=== PATIENT | male | born 1985 | race Caucasian/White ===

== ENCOUNTER 2017-02-19 20:19 | Emergency (ER) | payer BC ==
[~2017-02-19] VITALS: Ht 170.2 cm; Wt 75.0 kg
[2017-02-19 20:23] VITALS: BP 166/84; PULSE 140; RESP 18; TEMP 98.4; O2SAT 100
[2017-02-19] MEDS ORDERED: SODIUM CHLOR 0.9% 1000 ML INJ 1,000 ML IV ONE (20:24)
[2017-02-19] MEDS ORDERED: PROZ20CA11 PO (20:27)
[2017-02-19] MEDS ORDERED: ATOM25 PO (20:27)
[2017-02-19 20:28] VITALS: BP 155/78; PULSE 135; RESP 18; O2SAT 98; O2SAT 99
[2017-02-19] MEDS ORDERED: NALOXONE HCL 2 MG/2 ML VIAL IV PUSH ONE (20:30)
[2017-02-19] MEDS ORDERED: SODIUM CHLORIDE 0.9% FLUSH 10 ML FLUSH IVF PRN (20:30)
--- NOTE | 2017-02-19 20:36 | PD ---
HPI Chief Complaint: OD/ Ingestion Time Seen by Provider: 20:24 Travel History International Travel<30 days: No Contact w/Intl Traveler<30days: No Traveled to known affect area: No History of Present Illness HPI The patient is a 31-year-old male who presents emergency department via private vehicle, was dropped off the front to the emergency department after an apparent overdose. The patient had poor spontaneous respirations and was cyanotic upon arrival. The patient's GCS was 3, he was unable to provide information initially upon evaluation in the emergency department. [facility] Past Medical History ADHD: Yes Anxiety: Yes Diminished Hearing: No Tetanus Vaccination: Unknown Influenza Vaccination: No Past Surgical History Surgical History: No Previous Surgery Social History Alcohol Use: No Tobacco Use: Yes Substance Use: Yes (FENTANYL) Allergies-Medications (Allergen,Severity, Reaction): Coded Allergies: No Known Allergies (Unverified , 02/19/17) Reported Meds & Prescriptions Reported Meds & Active Scripts Active Reported Strattera (Atomoxetine HCl) 25 Mg Cap 25 Mg PO DAILY Prozac (Fluoxetine HCl) 20 Mg Cap 20 Mg PO DAILY Review of Systems ROS Limitations: Clinical Condition Except as stated in HPI: all other systems reviewed are Neg Psychiatric: Positive: Substance Abuse Physical Exam Narrative GENERAL: 31-year-old male who is breathing approximately 2-3 times per minute, was cyanotic upon arrival. SKIN: Cool and diaphoretic to the touch. HEAD: Atraumatic. Normocephalic. EYES: Pinpoint pupils bilateral. ENT: No nasal bleeding or discharge. Mucous membranes pink and moist. NECK: Trachea midline. No JVD. CARDIOVASCULAR: Tachycardic in the 120s. RESPIRATORY: Respiratory rate was approximately 2-3/m upon arrival. Rhonchi in the bases. Abdomen: No obvious rigidity or distention. MUSCULOSKELETAL: Cyanotic. NEUROLOGICAL: GCS of 3. Does not respond to verbal commands or painful similar. PSYCHIATRIC: Unable to obtain. Data Data Last Documented VS Vital Signs Date Time Temp Pulse Resp B/P (MAP) Pulse Ox O2 Delivery O2 Flow Rate FiO2 02/19/17 20:28 18 99 Nasal Cannula 2.00 02/19/17 20:28 135 155/78 (103) 02/19/17 20:23 98.4 Orders Orders Electrocardiogram (02/19/17 20:24) Complete Blood Count With Diff (02/19/17 20:24) Comprehensive Metabolic Panel (02/19/17 20:24) Prothrombin Time / Inr (Pt) (02/19/17 20:24) Act Partial Throm Time (Ptt) (02/19/17 20:24) Urinalysis - C+S If Indicated (02/19/17 20:24) Iv Access Insert/Monitor (02/19/17 20:24) Ecg Monitoring (02/19/17 20:24) Oximetry (02/19/17 20:24) Naloxone Inj (Narcan Inj) (02/19/17 20:30) Sodium Chloride 0.9% Flush (Ns Flush) (02/19/17 20:30) Sodium Chlor 0.9% 1000 Ml Inj (Ns 1000 M (02/19/17 20:24) Drug Screen, Random Urine (02/19/17 20:24) Alcohol (Ethanol) (02/19/17 20:24) Salicylates (Aspirin) (02/19/17 20:24) Tylenol (Acetaminophen) (02/19/17 20:24) Labs Laboratory Tests Test 02/19/17 20:31 02/19/17 20:59 White Blood Count 18.1 TH/MM3 Red Blood Count 5.11 MIL/MM3 Hemoglobin 14.6 GM/DL Hematocrit 44.7 % Mean Corpuscular Volume 87.4 FL Mean Corpuscular Hemoglobin 28.6 PG Mean Corpuscular Hemoglobin Concent 32.7 % Red Cell Distribution Width 12.8 % Platelet Count 339 TH/MM3 Mean Platelet Volume 9.3 FL Neutrophils (%) (Auto) 34.2 % Lymphocytes (%) (Auto) 52.3 % Monocytes (%) (Auto) 10.1 % Eosinophils (%) (Auto) 2.0 % Basophils (%) (Auto) 1.4 % Neutrophils # (Auto) 6.2 TH/MM3 Lymphocytes # (Auto) 9.5 TH/MM3 Monocytes # (Auto) 1.8 TH/MM3 Eosinophils # (Auto) 0.4 TH/MM3 Basophils # (Auto) 0.2 TH/MM3 CBC Comment AUTO DIFF Differential Total Cells Counted 100 Neutrophils % (Manual) 45 % Band Neutrophils % 1 % Lymphocytes % 37 % Monocytes % 4 % Eosinophils % 2 % Basophils % 2 % Neutrophils # (Manual) 8.5 TH/MM3 Myelocytes 1 % Differential Comment FINAL DIFF MANUAL Atypical Lymphocytes 8 % Platelet Estimate NORMAL Platelet Morphology Comment CLUMPED Ovalocytes 1+ Prothrombin Time 10.9 SEC Prothromb Time International Ratio 1.0 RATIO Activated Partial Thromboplast Time 20.3 SEC Blood Urea Nitrogen 16 MG/DL Creatinine 1.33 MG/DL Random Glucose 188 MG/DL Total Protein 8.4 GM/DL Albumin 4.1 GM/DL Calcium Level 9.3 MG/DL Alkaline Phosphatase 83 U/L Aspartate Amino Transf (AST/SGOT) 25 U/L Alanine Aminotransferase (ALT/SGPT) 47 U/L Total Bilirubin 0.2 MG/DL Sodium Level 137 MEQ/L Potassium Level 3.4 MEQ/L Chloride Level 101 MEQ/L Carbon Dioxide Level 24.5 MEQ/L Anion Gap 12 MEQ/L Estimat Glomerular Filtration Rate 64 ML/MIN Salicylates Level 2.0 MG/DL Acetaminophen Level LESS THAN 2.0 MCG/ML Ethyl Alcohol Level LESS THAN 3 MG/DL Urine Color YELLOW Urine Turbidity CLEAR Urine pH 6.0 Urine Specific [place] 1.027 Urine Protein 30 mg/dL Urine Glucose (UA) NEG mg/dL Urine Ketones NEG mg/dL Urine Occult Blood NEG Urine Nitrite NEG Urine Bilirubin NEG Urine Urobilinogen 2.0 MG/DL Urine Leukocyte Esterase NEG Urine WBC 1 /hpf Urine Hyaline Casts 1 /lpf Urine Mucus FEW /lpf Microscopic Urinalysis Comment CULT NOT INDICATED Urine Opiates Screen POS Urine Barbiturates Screen NEG Urine Amphetamines Screen NEG Urine Benzodiazepines Screen NEG Urine Cocaine Screen NEG Urine Cannabinoids Screen NEG MDM Medical Decision Making Medical Screen Exam Complete: Yes Emergency Medical Condition: Yes Medical Record Reviewed: Yes Interpretation(s) EKG reveals sinus tachycardia with a rate of 142. Incomplete right bundle branch block with QRS of 105 ms with RSR prime in V1. Laboratory Tests Test 02/19/17 20:31 02/19/17 20:59 White Blood Count 18.1 TH/MM3 Red Blood Count 5.11 MIL/MM3 Hemoglobin 14.6 GM/DL Hematocrit 44.7 % Mean Corpuscular Volume 87.4 FL Mean Corpuscular Hemoglobin 28.6 PG Mean Corpuscular Hemoglobin Concent 32.7 % Red Cell Distribution Width 12.8 % Platelet Count 339 TH/MM3 Mean Platelet Volume 9.3 FL Neutrophils (%) (Auto) 34.2 % Lymphocytes (%) (Auto) 52.3 % Monocytes (%) (Auto) 10.1 % Eosinophils (%) (Auto) 2.0 % Basophils (%) (Auto) 1.4 % Neutrophils # (Auto) 6.2 TH/MM3 Lymphocytes # (Auto) 9.5 TH/MM3 Monocytes # (Auto) 1.8 TH/MM3 Eosinophils # (Auto) 0.4 TH/MM3 Basophils # (Auto) 0.2 TH/MM3 CBC Comment AUTO DIFF Differential Total Cells Counted 100 Neutrophils % (Manual) 45 % Band Neutrophils % 1 % Lymphocytes % 37 % Monocytes % 4 % Eosinophils % 2 % Basophils % 2 % Neutrophils # (Manual) 8.5 TH/MM3 Myelocytes 1 % Differential Comment FINAL DIFF MANUAL Atypical Lymphocytes 8 % Platelet Estimate NORMAL Platelet Morphology Comment CLUMPED Ovalocytes 1+ Prothrombin Time 10.9 SEC Prothromb Time International Ratio 1.0 RATIO Activated Partial Thromboplast Time 20.3 SEC Blood Urea Nitrogen 16 MG/DL Creatinine 1.33 MG/DL Random Glucose 188 MG/DL Total Protein 8.4 GM/DL Albumin 4.1 GM/DL Calcium Level 9.3 MG/DL Alkaline Phosphatase 83 U/L Aspartate Amino Transf (AST/SGOT) 25 U/L Alanine Aminotransferase (ALT/SGPT) 47 U/L Total Bilirubin 0.2 MG/DL Sodium Level 137 MEQ/L Potassium Level 3.4 MEQ/L Chloride Level 101 MEQ/L Carbon Dioxide Level 24.5 MEQ/L Anion Gap 12 MEQ/L Estimat Glomerular Filtration Rate 64 ML/MIN Salicylates Level 2.0 MG/DL Acetaminophen Level LESS THAN 2.0 MCG/ML Ethyl Alcohol Level LESS THAN 3 MG/DL Urine Color YELLOW Urine Turbidity CLEAR Urine pH 6.0 Urine Specific [place] 1.027 Urine Protein 30 mg/dL Urine Glucose (UA) NEG mg/dL Urine Ketones NEG mg/dL Urine Occult Blood NEG Urine Nitrite NEG Urine Bilirubin NEG Urine Urobilinogen 2.0 MG/DL Urine Leukocyte Esterase NEG Urine WBC 1 /hpf Urine Hyaline Casts 1 /lpf Urine Mucus FEW /lpf Microscopic Urinalysis Comment CULT NOT INDICATED Urine Opiates Screen POS Urine Barbiturates Screen NEG Urine Amphetamines Screen NEG Urine Benzodiazepines Screen NEG Urine Cocaine Screen NEG Urine Cannabinoids Screen NEG Differential Diagnosis Differential diagnosis includes opiate overdose, polysubstance abuse, aspiration , flash pulmonary edema, STEMI, CVA, ICH. Narrative Course Upon arrival the patient was breathing approximately 2-3 times per minute was cyanotic. He was rushed Bactrim echo 53. The patient was bagged via BVM and placed on O2 via nasal cannula. The patient was administered Narcan 2 mg sublingual with the needle. The patient then had an IV established was placed on cardiac telemetry monitoring and continuous pulse oximeter monitoring. The patient responded within 1-2 minutes, became awake and was able to sit upright. The patient did advise me that use intravenous fentanyl approximately one hour prior to arrival. He denies any other current physical complaints. Labs were drawn and sent. Chest x-ray was ordered to evaluate for possible pulmonary edema. EKG was ordered and interpreted. The patient was administered 1 L of IV fluids. Patient refused chest x-ray. Labs are unremarkable. The patient was monitored to 1 AM, no further signs of hypoxia, will be discharged. He is advised to stop using IV drugs. Diagnosis Primary Impression: Opiate overdose Qualified Codes: T40.601A - Poisoning by unspecified narcotics, accidental ( unintentional), initial encounter Patient Instructions: General Instructions Additional Instructions: Stop using IV drugs. Follow up outpatient with [facility] as needed. Return if symptoms worsen or progress. Disposition: 01 DISCHARGE HOME Condition: Stable Gian Henderson MD Feb 19, 2017 20:36
[2017-02-19 20:52] LABS: AUTOMATED NEUTROPHIL # 6.2 TH/MM3 (1.8-7.7); BASOPHIL # 0.2 TH/MM3 (0-0.2); BASOPHIL % 1.4 % (0.0-2.0); EOSINOPHIL # 0.4 TH/MM3 (0-0.4); HEMATOCRIT 44.7 % (39.0-51.0); LYMPH % 52.3 % (9.0-44.0); LYMPHOCYTE # 9.5 TH/MM3 (1.0-4.8); MEAN CELL VOLUME 87.4 FL (80.0-100.0); MEAN CORPUSCULAR HEMOGLOBIN 28.6 PG (27.0-34.0); MEAN CORPUSCULAR HGB CONC 32.7 % (32.0-36.0); MONO % 10.1 % (0.0-8.0); NEUT % 34.2 % (16.0-70.0); PLATELET COUNT 339 TH/MM3 (150-450); RED BLOOD COUNT 5.11 MIL/MM3 (4.50-5.90); RED CELL DISTRIBUTION WIDTH 12.8 % (11.6-17.2); WHITE BLOOD COUNT 18.1 TH/MM3 (4.0-11.0)
[2017-02-19 20:58] LABS: HEMO FLAGS AUTO DIFF
[2017-02-19 21:10] LABS: ALT (GPT) 47 U/L (12-78)
[2017-02-19 21:11] LABS: APTT (PATIENT) 20.3 SEC (24.3-30.1); PROTHROMBIN TIME - PATIENT 10.9 SEC (9.8-11.6)
[2017-02-19 21:12] LABS: ALKALINE PHOSPHATASE 83 U/L (45-117); TOTAL BILIRUBIN ADULT 0.2 MG/DL (0.2-1.0)
[2017-02-19 21:13] LABS: BLOOD, URINE NEG (NEG); COMMENT (UR) CULT NOT INDICATED; CULTURE IF INDICATED CULT NOT INDICATED; GLUCOSE,URINE NEG (NEG); HYALINE CAST, URINE 1 /lpf (RARE); KETONE, URINE NEG (NEG); MUCUS URINE FEW /lpf (OCC); NITRITE,URINE NEG (NEG); URINE COLOR YELLOW (YELLW/STRAW)
[2017-02-19 21:36] LABS: ANION GAP 12 MEQ/L (5-15); AST (GOT) 25 U/L (15-37); BICARBONATE 24.5 MEQ/L (21.0-32.0); BLOOD UREA NITROGEN 16 MG/DL (7-18); CHLORIDE 101 MEQ/L (98-107); GLOMERULAR FILTRATION RATE 64 ML/MIN (>89); POTASSIUM 3.4 MEQ/L (3.5-5.1); SODIUM (NA) 137 MEQ/L (136-145)
[2017-02-19 21:39] LABS: ATYPICAL LYMPHOCYTES 8 % (0-0); BANDS 1 % (0-6); BASOPHILS 2 % (0-2); EOSINOPHILS 2 % (0-4); MYELOCYTES 1 % (0-0); NEUTROPHIL # MANUAL DIFF 8.5 TH/MM3 (1.8-7.7); POLYS (SEG NEUTROPHILS) 45 % (16-70); WBC DIFF SAMPLE 100
[2017-02-19 21:41] LABS: PLATELET ESTIMATE SMEAR NORMAL (NORMAL); PLATELET MORPHOLOGY CLUMPED (NORMAL)
[2017-02-19 21:42] LABS: OVALOCYTES 1+ (NORMAL); SCAN/DIFF FINAL DIFF MANUAL
[2017-02-19 21:45] LABS: ACETAMINOPHEN LESS THAN 2.0 MCG/ML (10.0-30.0); ALCOHOL LESS THAN 3 MG/DL (0-5)
[2017-02-19 22:28] VITALS: BP 136/84; PULSE 100; RESP 18; O2SAT 96
[2017-02-20 00:37] VITALS: BP 138/68; PULSE 109; PULSE 116; RESP 18; O2SAT 97
--- NOTE | 2017-02-20 05:05 | EKG ---
Date Performed: 02/19/2017 Time Performed: 20:25:42 PTAGE: 31 years EKG: SINUS TACHYCARDIA, POSSIBLE ATRIAL FLUTTER BORDERLINE RIGHT AXIS DEVIATION INCOMPLETE RIGHT BUNDLE BRANCH BLOCK ABNORMAL RHYTHM ECG NO PREVIOUS TRACING DOCTOR: Emir Tavarez Interpretating Date/Time 02/20/2017 05:03:04
== END 2017-02-20 01:12 | disposition home or self-care (01) ==
LOC: NEPE 20:19
DX: T40.601A Poisoning by unspecified narcotics, accidental (unintentional), initial encounter (principal); F90.9 Attention-deficit hyperactivity disorder, unspecified type; F41.9 Anxiety disorder, unspecified; R00.0 Tachycardia, unspecified; I45.10 Unspecified right bundle-branch block; R94.31 Abnormal electrocardiogram [ECG] [EKG]; Z72.0 Tobacco use; Z79.899 Other long term (current) drug therapy
CPT/HCPCS: 80053; 80307; 81001; 85007; 85027; 85610; 85730; 93005; 96360; 96361; 99284; J7030

== ENCOUNTER 2017-09-13 17:35 | Emergency (ER) | payer BC ==
[~2017-09-13] VITALS: Ht 172.7 cm; Wt 80.0 kg
[~2017-09-13 17:35] MED LIST: ATOM25 PO; PROZ20CA11 PO
[2017-09-13 17:40] VITALS: BP 145/89; PULSE 115; RESP 20; TEMP 98.3; O2SAT 98
[2017-09-13] MEDS ORDERED: SODIUM CHLOR 0.9% 1000 ML INJ 1,000 ML IV ONE (18:00)
[2017-09-13] MEDS ORDERED: ONDANSETRON HCL 4 MG/2 ML VIAL IV PUSH ONE (18:00)
--- NOTE | 2017-09-13 18:37 | PD ---
HPI Chief Complaint: OD/ Ingestion Time Seen by Provider: 17:53 Travel History International Travel<30 days: No Contact w/Intl Traveler<30days: No Traveled to known affect area: No History of Present Illness HPI 32-year-old male that presents to the ED for evaluation of overdose. Patient has a history of heroine abuse. Patient has a history of IV drug abuse. Patient denies any attempt to commit suicide. Per patient he was just doing this recreationally. Per patient he is to be clean for some time. He has relapsed. He denies any suicidal homicidal ideation. No depression. No head injury. Patient was found by bystanders and ambulance given Narcan. Patient now back to baseline. Arousable. Speaks in full sentences. Denies any medical issues at this time. No pain. States feeling tired. Symptoms started today after he injected himself. He does remember injecting but does not remember what happened afterwards. He believes that he was Heroin. No allergies. No other complains at this time. PFSH Past Medical History ADHD: Yes Anxiety: Yes Diminished Hearing: No Tetanus Vaccination: > 5 Years Influenza Vaccination: No Past Surgical History Surgical History: No Previous Surgery Social History Alcohol Use: No Tobacco Use: Yes Substance Use: Yes (FENTANYL, HEROIN) Allergies-Medications (Allergen,Severity, Reaction): Coded Allergies: No Known Allergies (Unverified Adverse Reaction, Unknown, 09/13/17) Reported Meds & Prescriptions Reported Meds & Active Scripts Active Reported Strattera (Atomoxetine HCl) 25 Mg Cap 25 Mg PO DAILY Prozac (Fluoxetine HCl) 20 Mg Cap 20 Mg PO DAILY Review of Systems Except as stated in HPI: all other systems reviewed are Neg Physical Exam Narrative GENERAL: SKIN: Warm and dry. HEAD: Atraumatic. Normocephalic. EYES: Pupils equal and round. No scleral icterus. No injection or drainage. ENT: No nasal bleeding or discharge. Mucous membranes pink and moist. Tongue is midline. No uvula deviation. NECK: Trachea midline. No JVD. CARDIOVASCULAR: Regular rate and rhythm. No murmurs, S3, S4. RESPIRATORY: No accessory muscle use. Clear to auscultation. Breath sounds equal bilaterally. GASTROINTESTINAL: Abdomen soft, non-tender, nondistended. Hepatic and splenic margins not palpable. MUSCULOSKELETAL: Extremities without clubbing, cyanosis, or edema. No obvious deformities. Full range of motion of the upper and lower extremities bilaterally. 2+ pulses bilaterally. NEUROLOGICAL: Awake and alert. No obvious cranial nerve deficits. Motor grossly within normal limits. Five out of 5 muscle strength in the arms and legs. Normal speech. PSYCHIATRIC: Appropriate mood and affect; insight and judgment normal. Data Data Last Documented VS Vital Signs Date Time Temp Pulse Resp B/P (MAP) Pulse Ox O2 Delivery O2 Flow Rate FiO2 09/13/17 19:08 98 18 117/78 (91) 98 Room Air 09/13/17 17:40 98.3 Orders Orders Complete Blood Count With Diff (09/13/17 18:00) Comprehensive Metabolic Panel (09/13/17 18:00) Drug Screen, Random Urine (09/13/17 18:00) Alcohol (Ethanol) (09/13/17 18:00) Salicylates (Aspirin) (09/13/17 18:00) Tylenol (Acetaminophen) (09/13/17 18:00) Sodium Chlor 0.9% 1000 Ml Inj (Ns 1000 M (09/13/17 18:00) Ondansetron Inj (Zofran Inj) (09/13/17 18:00) Naloxone Inj (Narcan Inj) (09/13/17 19:00) Labs Laboratory Tests Test 09/13/17 18:15 White Blood Count 9.4 TH/MM3 Red Blood Count 4.99 MIL/MM3 Hemoglobin 14.2 GM/DL Hematocrit 42.4 % Mean Corpuscular Volume 84.9 FL Mean Corpuscular Hemoglobin 28.5 PG Mean Corpuscular Hemoglobin Concent 33.5 % Red Cell Distribution Width 14.3 % Platelet Count 304 TH/MM3 Mean Platelet Volume 8.3 FL Neutrophils (%) (Auto) 67.9 % Lymphocytes (%) (Auto) 25.0 % Monocytes (%) (Auto) 5.1 % Eosinophils (%) (Auto) 1.5 % Basophils (%) (Auto) 0.5 % Neutrophils # (Auto) 6.4 TH/MM3 Lymphocytes # (Auto) 2.3 TH/MM3 Monocytes # (Auto) 0.5 TH/MM3 Eosinophils # (Auto) 0.1 TH/MM3 Basophils # (Auto) 0.0 TH/MM3 CBC Comment DIFF FINAL Differential Comment Blood Urea Nitrogen 22 MG/DL Creatinine 1.27 MG/DL Random Glucose 153 MG/DL Total Protein 8.2 GM/DL Albumin 4.0 GM/DL Calcium Level 8.4 MG/DL Alkaline Phosphatase 83 U/L Aspartate Amino Transf (AST/SGOT) 22 U/L Alanine Aminotransferase (ALT/SGPT) 52 U/L Total Bilirubin 0.2 MG/DL Sodium Level 140 MEQ/L Potassium Level 3.8 MEQ/L Chloride Level 104 MEQ/L Carbon Dioxide Level 27.3 MEQ/L Anion Gap 9 MEQ/L Estimat Glomerular Filtration Rate 67 ML/MIN Salicylates Level LESS THAN 1.7 MG/DL Acetaminophen Level LESS THAN 2.0 MCG/ML Ethyl Alcohol Level LESS THAN 3 MG/DL MDM Medical Decision Making Medical Screen Exam Complete: Yes Emergency Medical Condition: Yes Medical Record Reviewed: Yes Interpretation(s) CBC & BMP Diagram 09/13/17 18:15 Total Protein 8.2, Albumin 4.0, Calcium Level 8.4 L, Alkaline Phosphatase 83, Aspartate Amino Transf (AST/SGOT) 22, Alanine Aminotransferase (ALT/SGPT) 52, Total Bilirubin 0.2 Differential Diagnosis Overdose versus opiate overdose versus IV drug abuse versus normal exam Narrative Course 32-year-old male that presents to the ED for evaluation of overdose. Patient was properly examined and was found to have signs and symptoms consistent appears to be overdose. Patient appears to be arousable. Patient was given Narcan by ambulance. Patient will be observed for 3 hours. Blood work was done. Patient was given IV fluids and Zofran. Labs showed no sign of acute disease. While I was seeing another patient apparently patient decided to leave AMA. My attending recommended that the patient gets IM dose of Narcan if patient has a ride home. Patient states that he has a right and he agrees to the IM dose. Patient understands that by leaving he can suffered that in great injury. My attending and I agreed the patient at this time appears to be of sound mind and capable of making his own decisions. Patient did agree to get the IM dose of Narcan as previously stated. My attending agrees the patient can leave AMA as long as he has a ride. He was able to get a ride. AMA: The risks of leaving against medical advice without further evaluation treatment were discussed with the patient. These risks include cardiac dysfunction, cardiac dysrhythmia, possible heart attack, possible stroke or . The patient indicated understanding of these risks and appeared to have the capacity to make this decision. Told to stop using drugs. Follow-up with PCP. Follow with detox facility. See ED worsening symptoms. Diagnosis Primary Impression: Overdose opiate Qualified Codes: T40.601A - Poisoning by unspecified narcotics, accidental ( unintentional), initial encounter Patient Instructions: General Instructions Disposition: 07 AGAINST MEDICAL ADVICE Condition: Stable Flako Allen Sep 13, 2017 18:37
[2017-09-13 18:38] LABS: AUTOMATED NEUTROPHIL # 6.4 TH/MM3 (1.8-7.7); BASOPHIL % 0.5 % (0.0-2.0); EOSINOPHIL # 0.1 TH/MM3 (0-0.4); EOSINOPHIL % 1.5 % (0.0-4.0); HEMATOCRIT 42.4 % (39.0-51.0); HEMOGLOBIN 14.2 GM/DL (13.0-17.0); LYMPHOCYTE # 2.3 TH/MM3 (1.0-4.8); MEAN CELL VOLUME 84.9 FL (80.0-100.0); MEAN CORPUSCULAR HEMOGLOBIN 28.5 PG (27.0-34.0); MEAN CORPUSCULAR HGB CONC 33.5 % (32.0-36.0); MEAN PLATELET VOLUME 8.3 FL (7.0-11.0); MONO % 5.1 % (0.0-8.0); MONOCYTE # 0.5 TH/MM3 (0-0.9); NEUT % 67.9 % (16.0-70.0); PLATELET COUNT 304 TH/MM3 (150-450); RED BLOOD COUNT 4.99 MIL/MM3 (4.50-5.90); RED CELL DISTRIBUTION WIDTH 14.3 % (11.6-17.2); WHITE BLOOD COUNT 9.4 TH/MM3 (4.0-11.0)
[2017-09-13 18:53] LABS: ALKALINE PHOSPHATASE 83 U/L (45-117); TOTAL BILIRUBIN ADULT 0.2 MG/DL (0.2-1.0); TOTAL PROTEIN 8.2 GM/DL (6.4-8.2)
[2017-09-13] MEDS ORDERED: NALOXONE HCL 2 MG/2 ML VIAL IM ONE (19:00)
[2017-09-13 19:08] VITALS: BP 117/78; PULSE 98; RESP 18; O2SAT 98
[2017-09-13 19:17] LABS: ACETAMINOPHEN LESS THAN 2.0 MCG/ML (10.0-30.0); ALT (GPT) 52 U/L (12-78); AST (GOT) 22 U/L (15-37); BICARBONATE 27.3 MEQ/L (21.0-32.0); BLOOD UREA NITROGEN 22 MG/DL (7-18); CALCIUM 8.4 MG/DL (8.5-10.1); CHLORIDE 104 MEQ/L (98-107); CREATININE 1.27 MG/DL (0.60-1.30); GLOMERULAR FILTRATION RATE 67 ML/MIN (>89); GLUCOSE,RANDOM 153 MG/DL (74-106); SODIUM (NA) 140 MEQ/L (136-145)
== END 2017-09-13 19:07 | disposition left against medical advice (07) ==
LOC: NEPE 17:35
DX: T40.601A Poisoning by unspecified narcotics, accidental (unintentional), initial encounter (principal)
CPT/HCPCS: 80053; 80307; 85025; 96372; 99283; J2310